=== PATIENT | female | born 1990 | race Caucasian/White ===

== ENCOUNTER 2017-10-17 23:50 | Emergency (ER) | payer OTHER ==
[~2017-10-17] VITALS: Ht 167.6 cm; Wt 87.1 kg
[2017-10-17 23:59] VITALS: BP 138/98; Ht 167.6 cm; Wt 87.1 kg
== END 2017-10-18 00:46 | disposition home or self-care (01) ==
LOC: ED 23:50
DX: H92.02 Otalgia, left ear (principal); R03.0 Elevated blood-pressure reading, without diagnosis of hypertension

== ENCOUNTER 2017-10-28 13:16 | Emergency (ER) | payer OTHER | END 2017-10-28 13:40 | disposition left against medical advice (07) | LOC: ED 13:16 | DX: Z53.21 Procedure and treatment not carried out due to patient leaving prior to being seen by health care provider (principal) ==

== ENCOUNTER 2017-10-30 00:59 | Emergency (ER) | payer OTHER ==
[~2017-10-30] VITALS: Ht 167.6 cm; Wt 87.1 kg
[2017-10-30 01:08] VITALS: BP 122/82; Ht 167.6 cm; Wt 87.1 kg
== END 2017-10-30 01:46 | disposition home or self-care (01) ==
LOC: ED 00:59
DX: L03.012 Cellulitis of left finger (principal)

== ENCOUNTER 2018-02-18 13:39 | Emergency (ER) | payer OTHER ==
[~2018-02-18] VITALS: Ht 167.6 cm; Wt 83.5 kg
[2018-02-18 13:44] VITALS: BP 126/78; Ht 167.6 cm; Wt 83.5 kg
== END 2018-02-18 16:00 | disposition home or self-care (01) ==
LOC: ED 13:39
DX: L02.414 Cutaneous abscess of left upper limb (principal); R03.0 Elevated blood-pressure reading, without diagnosis of hypertension
CPT/HCPCS: J2001